=== PATIENT | female | born 1960 | race Asian ===

== ENCOUNTER 2025-05-30 16:18 | Emergency (ER) | payer MEDICAID, SELFPAY ==
[2025-05-30 16:58] VITALS: BP 172/83; PULSE 75; RESP 18; TEMP 36.6; O2SAT 99
--- NOTE | 2025-05-30 17:07 | PD.EDRME ---
Rapid Medical Screening Exam RME Arrival date/time: 05/30/25 16:18 Chief Complaint: General Adult/Misc Complain Time Seen by Provider: 05/30/25 17:07 Vital signs: Vital Signs Temperature 97.9 F 05/30/25 16:58 Pulse Rate 75 05/30/25 16:58 Respiratory Rate 18 05/30/25 16:58 Blood Pressure 172/83 H 05/30/25 16:58 Pulse Oximetry (%) 99 05/30/25 16:58 Oxygen Delivery Method Room Air 05/30/25 16:58 Pulse ox 99% room air Vital signs reviewed by provider: Yes RME Narrative: 65-year-old female presents to the ED with complaint of left lower extremity that began 3 days ago. Also complains of numbness and tingling to his left foot. Denies trauma. Exam: Left lower extremity is tender to palpation anterior aspect between the head of the femur and the knee. There is no apparent trauma present. No guarding. No apparent masses. Neurovascular is intact. There is a positive femoral pulse 2+ and bounding. The foot is without any apparent trauma. Pedal pulses present neurovascular is intact there is no apparent neurofocal deficit. Clinical Impression: Leg pain
--- NOTE | 2025-05-30 17:17 | XR_ITS ---
Examination: Duplex scan of the lower extremity, unilateral left complete Date and time of exam: May 30, 2025, 1742 hours INDICATIONS: Onset left leg pain today Technique: Duplex scan of the extremity veins using B-mode/grayscale imaging and Doppler spectral analysis and color flow Attention is directed to internal echogenicity, compression and augmentation involving these veins, color flow assessment, spectral analysis Findings: Major deep venous structures in the extremity demonstrate normal course and caliber. There is no evidence of deep vein thrombosis. Normal color flow and spectral analysis Impression: Negative for DVT..
[2025-05-30 18:01] LABS: INR 0.9 (0.9-1.3); Partial Thromboplastin Time 27.9 Seconds (22.0-36.0); Prothrombin Time 10.1 Seconds (9.0-12.2)
[2025-05-30 18:02] LABS: Alanine Aminotransferase 21 U/L (10-49); Albumin, Serum 4.7 gm/dL (3.4-4.8); Albumin/Globulin Ratio 2.1 (1.2-2.2); Alkaline Phosphatase 89 U/L (46-116); Anion Gap 9 (7-16); Aspartate Amino Transferase 22 U/L (0-34); BUN/Creatinine Ratio 14 Ratio (12-20); Bilirubin,Total 0.2 mg/dL (0.3-1.2); Blood Urea Nitrogen 18 mg/dL (9-23); Calcium 9.2 mg/dL (8.3-10.6); Calcium (Corrected) 9.2 mg/dL (8.5-10.1); Carbon Dioxide 27.7 mMol/L (20.0-31.0); Chloride 105 mMol/L (98-107); Creatinine (Component) 1.3 mg/dL (0.6-1.3); Globulin 2.2 gm/dL (2.3-3.5); Glucose 118 mg/dL (74-106); Osmolality,Calculated 286 (275-295); Potassium 4.0 mMol/L (3.4-5.1); Sodium 142 mMol/L (136-145); Total Protein 6.9 gm/dL (5.7-8.2); eGFR 46 See Note
[2025-05-30 18:23] LABS: D-Dimer < 250 ng/mL (<600)
--- NOTE | 2025-05-30 20:34 | PD.EDADULT ---
ED General RME/HPI General Chief complaint: General Adult/Misc Complain Stated complaint: LEFT LEG PAIN SINCE THIS MORNING Time Seen by Provider: 05/30/25 17:07 Arrival date/time: 05/30/25 16:18 65-year-old female patient with significant history of hypertension diabetes mellitus, came in for evaluation regarding left anterior lateral leg pain. Onset of symptoms for the last few days is on and off low back pain, this morning woke up with left anterolateral leg pain. Described as dull ache, severity moderate. Patient denies any urinary incontinence denies any bowel incontinence denies any fever denies any other complaints patient is ambulatory. Denies any trauma denies any fever. No medication was taken prior to ER visit. RME / HPI RME / HPI narrative: 65-year-old female presents to the ED with complaint of left lower extremity that began 3 days ago. Also complains of numbness and tingling to his left foot. Denies trauma. Exam: Left lower extremity is tender to palpation anterior aspect between the head of the femur and the knee. There is no apparent trauma present. No guarding. No apparent masses. Neurovascular is intact. There is a positive femoral pulse 2+ and bounding. The foot is without any apparent trauma. Pedal pulses present neurovascular is intact there is no apparent neurofocal deficit. Impression: Leg pain Related Data Home Medications ?Medication ?Instructions ?Recorded ?Confirmed benazepril 40 mg tablet (Lotensin) 40 mg PO QDAY #0 tabs 09/07/16 09/19/21 ferrous sulfate 325 mg (65 mg 325 mg PO QDAY 09/27/19 09/19/21 iron) tablet metoprolol tartrate 100 mg tablet 100 mg PO BID 09/27/19 09/19/21 omeprazole 20 mg capsule,delayed 20 mg PO QDAY 09/27/19 09/19/21 release simvastatin 20 mg tablet 40 mg PO QPM 09/27/19 09/19/21 metformin 500 mg tablet 500 mg PO QAM 09/19/21 09/19/21 naproxen 500 mg tablet 500 mg PO BID 09/19/21 09/19/21 Previous Rx's ?Medication ?Instructions ?Recorded tramadol 50 mg tablet 50 mg PO TID PRN pain #20 tabs 09/19/21 dicyclomine 20 mg tablet 20 mg PO BID #14 tabs 10/26/22 cyclobenzaprine 5 mg tablet 5 mg PO TID PRN muscle spasm #20 05/30/25 tabs ibuprofen 800 mg tablet 800 mg PO Q8H PRN pain #30 tabs 05/30/25 Allergies Allergy/AdvReac Type Severity Reaction Status Date / Time No Known Allergies Allergy Verified 05/30/25 16:21 Review of Systems Review of Systems Narrative Review of Systems: Review of system reviewed and within normal limits except mentioned in HPI ED Exam Narrative Physical exam: VITAL SIGNS: Reviewed. GENERAL APPEARANCE: Alert and interactive, follows commands, no acute distress, HEAD AND FACE: Non-traumatic. ENT: PERRL, pink conjunctivitis, eyelid no trauma, Mucous membrane moist. NECK: Supple, nontender, no nuchal rigidity. CHEST: No tenderness, no crepitus, no paradoxical movement, no retractions. LUNGS: Clear, well ventilated, symmetric, no rales, no wheezing, no ronchi, no stridor, good breath sounds bilaterally. HEART: Regular rate, regular rhythm, no murmur, no gallops. ABDOMEN: Soft, positive bowel sounds, nondistended, no guarding, nontender, no rebound, no masses, RECTAL: Deferred. GENITAL: Deferred. NEUROLOGICAL: Gross motor function intact sensory function intact, Appropriate for age. MUSCULOSKELETAL: low back tenderness, full range of motion. Positive straight leg raising test at 45 degrees in the left, distal neurovascular status intact. EXTREMITIES: Nontender, full range of motion. SKIN: Color pink, dry, no rash, no lacerations, no abrasions, no contusions. LYMPHATICS: Deferred. Course Quality Measures none Orders Category Date Time Status US venous doppler LE LT Stat Exams 05/30/25 17:17 Completed CMP [Comprehensive Metabolic Panel] Stat Lab 05/30/25 17:29 Completed D-Dimer Stat Lab 05/30/25 17:29 Completed PT [Prothrombin Time with INR] Stat Lab 05/30/25 17:29 Completed PTT [Partial Thromboplastin Time] Stat Lab 05/30/25 17:29 Completed CYCLObenzaPRINE [Flexeril] Med 05/30/25 20:33 Once 10 mg PO X1 ONE Ketorolac Inj [Toradol Inj] Med 05/30/25 20:33 Once 30 mg IM X1 ONE Vital Signs Vital signs: Vital Signs Temperature 97.9 F 05/30/25 16:58 Pulse Rate 75 05/30/25 16:58 Respiratory Rate 18 05/30/25 16:58 Blood Pressure 172/83 H 05/30/25 16:58 Pulse Oximetry (%) 99 05/30/25 16:58 Oxygen Delivery Method Room Air 05/30/25 16:58 Discharge Plan Plan Patient Disposition: HOME (Self Care) Discharge Disposition comment: Stable Prescriptions/Referrals Prescriptions/Med Rec: New cyclobenzaprine 5 mg tablet 5 mg PO TID PRN (Reason: muscle spasm) Qty: 20 0RF ibuprofen 800 mg tablet 800 mg PO Q8H PRN (Reason: pain) Qty: 30 0RF No Action benazepril [Lotensin] 40 MG tablet 40 mg PO QDAY Qty: 0 metoprolol tartrate 100 mg Tablet 100 mg PO BID simvastatin 20 mg Tablet 40 mg PO QPM ferrous sulfate 325 mg (65 mg iron) Tablet 325 mg PO QDAY omeprazole 20 mg Capsule,Delayed Release(Dr/Ec) 20 mg PO QDAY metformin 500 mg tablet 500 mg PO QAM Patient Comments: take 1 tablet by mouth every morning and evening with meals naproxen 500 mg tablet 500 mg PO BID Patient Comments: take 1 tablet by mouth twice a day with food tramadol 50 mg tablet 50 mg PO TID PRN (Reason: pain) Qty: 20 0RF dicyclomine 20 mg tablet 20 mg PO BID Qty: 14 0RF Referrals: Brianne Keene, [employer] [facility] [Primary Care Provider] - In 1 week Problem List Clinical Impression: Sciatica, Low back pain Patient/Caregiver Discharge Instructions Discharge Activity: activity as tolerated Education Materials: ED Sciatica Additional Instructions: Thank you for the opportunity for serving you today. You are stable for discharged . You are advised to: Follow-up with your PCP in 1 to 2 days and ask for referral to general surgeon Return to ED for worsening of symptoms Increase oral fluids Take medication as prescribed Print Language: Other Stand Alone Forms: [employer] Info., Patient Portal Info Letter MDM Narrative MDM hospital course (for use when minimal MDM required): 05/30/25 16:18 65-year-old female patient with significant history of hypertension diabetes mellitus, came in for evaluation regarding left anterior lateral leg pain. Onset of symptoms for the last few days is on and off low back pain, this morning woke up with left anterolateral leg pain. Described as dull ache, severity moderate. Patient denies any urinary incontinence denies any bowel incontinence denies any fever denies any other complaints patient is ambulatory. Denies any trauma denies any fever. No medication was taken prior to ER visit. Patient's laboratory workup all came back unremarkable. Ultrasound of the lower extremities negative for DVT. Patient is having sciatica. Patient was given Toradol and Flexeril with significant improvement of pain. Was advised to follow-up closely with PCP and for referral to spine surgeon for further evaluation. Possible outpatient MRI of the lumbar spine. Patient and family agrees with the plan. Patient stable for discharge home Clinical Information Provided by: patient and family Medication Administration(s) Medication Administration History Cyclobenzaprine HCl (Cyclobenzaprine 5 Mg Tablet) 10 mg PO X1 ONE Stop: 05/30/25 20:34 Ketorolac Tromethamine (Ketorolac Inj 30 Mg/Ml Vial) 30 mg IM X1 ONE Stop: 05/30/25 20:34 Diagnosis Differential Diagnosis ED Complaint MDM: Sciatica, leg pain DVT Diagnoses ruled out and/or further discussions: Sciatica, low back pain
[2025-05-30] MEDS: KETOROLAC INJ 30 MG/ML VIAL IM (20:44)
[2025-05-30 20:47] VITALS: BP 146/72; PULSE 68; RESP 16; TEMP 36.8; O2SAT 98
== END 2025-05-30 21:05 | disposition home or self-care (01) ==
PROVIDERS: Physician Assistant; Emergency Provider Emergency Medicine; PCP Registered Nurse Home Health
DX: M54.42 Lumbago with sciatica, left side (principal)
CPT/HCPCS: 36415; 80053; 85379; 85610; 85730; 93971; 96372; 99283; J1885; A9270